=== PATIENT | female | born 1950 | race Caucasian/White ===

== ENCOUNTER 2020-04-27 12:39 | Emergency (ER) | payer MEDICARE, OTHER ==
[~2020-04-27] VITALS: Ht 152.4 cm; Wt 73.9 kg
--- NOTE | 2020-04-27 12:39 | NUR ---
PT BIB FAMILY C/O ABDOMINAL PAIN/NAUSEA AND DIARRHEA X 3 DAYS. PT IS AAOX4, NOT IN RESPIRATORY DISTRESS, V/S STABLE, KEPT RESTED AND COMFORTABLE. WILL CONTINUE TO MONITOR.
--- NOTE | 2020-04-27 12:57 | NUR ---
SEEN AND EXAMINED BY .
[2020-04-27] MEDS ORDERED: ONDANSETRON HCL/PF 4 MG/2 ML VIAL ONE (12:58)
[2020-04-27] MEDS ORDERED: MORPHINE SULFATE INJ 2 MG/ML DISP.SYRIN ONE (12:58)
[2020-04-27] MEDS ORDERED: MORPHINE SULFATE INJ 2 MG/ML DISP.SYRIN IV ONE (13:00)
[2020-04-27] MEDS ORDERED: ONDANSETRON HCL/PF 4 MG/2 ML VIAL IVP ONE (13:00)
--- NOTE | 2020-04-27 13:00 | NUR ---
URINE SPECIMEN COLLECTED AND SENT TO LAB.
--- NOTE | 2020-04-27 13:10 | NUR ---
IV LINE ESTABLISHED BLOOD DRAWN AND SENT TO LAB.
[2020-04-27 13:17] LABS: BASOPHILS # (AUTO) 0.1 /CMM (0.0-0.2); HEMATOCRIT 43 % (33-45); HEMOGLOBIN 14.5 g/dL (11.5-14.8); LYMPHOCYTES # (AUTO) 3.2 /CMM (0.8-4.8); LYMPHOCYTES % (AUTO) 39.4 % (20.0-44.0); MEAN CORPUSCULAR HGB CONC 34 g/dl (31.0-36.0); MEAN CORPUSCULAR VOLUME 89 fL (82-100); MONOCYTES # (AUTO) 0.5 /CMM (0.1-1.30); MONOCYTES % (AUTO) 6.6 % (2.0-12.0); NEUTROPHILS # (AUTO) 4.2 /CMM (1.8-8.9); PLATELET COUNT (AUTO) 299 /CMM (150-450)
[2020-04-27 13:21] LABS: APPEARANCE,URINE SLIGHTLY HAZY (CLEAR); BILIRUBIN,URINE SMALL (NEGATIVE); BLOOD, URINE Negative Ery/uL (NEGATIVE); COLOR,URINE DARK YELLOW (YELLOW); KETONES,URINE Trace (NEGATIVE); LEUKOCYTE ESTERASE ,URINE Negative (NEGATIVE); NITRITE, URINE Negative (NEGATIVE); PH,URINE 5.5 (5.0-8.0); PROTEIN,URINE 30 mg/dl (NEGATIVE); UGLUCOSE Negative (NEGATIVE); UROBILINOGEN,URINE 0.2 EU/dL (0.2)
--- NOTE | 2020-04-27 13:23 | NUR ---
PT IS WHEELED TO CT SCAN VIA [facility].
[2020-04-27 13:24] LABS: CALCIUM, SERUM 9.9 mg/dL (8.5-10.1); POTASSIUM 3.1 mmol/L (3.5-5.1)
[2020-04-27 13:30] LABS: ALBUMIN 4.3 g/dL (3.4-5.0); BILIRUBIN,DIRECT 0.1 mg/dL (0.0-0.2); BILIRUBIN,TOTAL 0.6 mg/dL (0.2-1.0); TOTAL PROTEIN, SERUM 7.8 g/dL (6.4-8.2)
[2020-04-27 13:31] LABS: BACTERIA,URINE Moderate /HPF (None Seen); RBC,URINE 0-2 /HPF (0-2); SQUAMOUS EPITHELIAL CELL,UR Moderate /HPF (None Seen); URINE AMORPHOUS URATE Few /HPF (None Seen)
[2020-04-27 13:32] LABS: MUCUS,URINE Moderate /LPF (None Seen)
--- NOTE | 2020-04-27 14:10 | NUR ---
AT BEDSIDE FOR RE-EVAL.
[2020-04-27] MEDS ORDERED: POTASSIUM CHLORIDE 20 MEQ TAB.PRT.SR PO ONE ×2 (14:30)
[2020-04-27] MEDS ORDERED: IOHEXOL-300 100 ML VIAL IV ONE (16:37)
[2020-04-27] MEDS ORDERED: IV NS 0.9% 250 ML IV ONE (16:37)
--- NOTE | 2020-04-27 17:11 | NUR ---
PT IS BACK FROM THE CT SCAN.
[2020-04-27 18:34] VITALS: BP 119/72
--- NOTE | 2020-04-27 18:34 | NUR ---
IV removed. Catheter intact and site benign. Pressure and 4x4 applied to site. No bleeding noted. Patient discharged to home in stable condition. Written and verbal after care instructions given. Patient verbalizes understanding of instruction.
== END 2020-04-27 18:35 | disposition home or self-care (01) ==
LOC: ER 12:47
DX: K44.9 Diaphragmatic hernia without obstruction or gangrene (principal); E87.6 Hypokalemia; G89.29 Other chronic pain; E78.5 Hyperlipidemia, unspecified; K21.9 Gastro-esophageal reflux disease without esophagitis; I25.10 Atherosclerotic heart disease of native coronary artery without angina pectoris; I10 Essential (primary) hypertension; Z98.890 Other specified postprocedural states
CPT/HCPCS: 36415; 71045; 71260; 74176; 74177; 80048; 80076; 81001; 83690; 84484 ×2; 85025; 87086; 93005 ×2; 96374; 96375; 99285; J2270; J2405; J7050; Q9967; 81000-TC

== ENCOUNTER 2021-02-20 10:56 | Inpatient (IN) | payer MEDICARE, OTHER ==
[~2021-02-20] VITALS: Ht 154.9 cm; Wt 75.8 kg
--- NOTE | 2021-02-20 10:56 | NUR ---
PT BIB DAUGHTER C/O SOB, CHEST PAIN SINCE YESTERDAY. PT IS AAOX4, NOT IN RESPIRATORY DISTRESS, HOOKED TO DAMPENER, KEPT RESTED AND COMFORTABLE. WILL CONTINUE TO MONITOR.
--- NOTE | 2021-02-20 11:27 | NUR ---
AT BEDSIDE FOR EVAL.
[2021-02-20] MEDS ORDERED: ASPIRIN 81 MG TAB.CHEW PO ONE (11:30)
[2021-02-20] MEDS ORDERED: ONDANSETRON HCL/PF 4 MG/2 ML VIAL IV ONE (11:30)
[2021-02-20] MEDS ORDERED: ONDANSETRON HCL/PF 4 MG/2 ML VIAL ONE (11:38)
[2021-02-20] MEDS ORDERED: MORPHINE SULFATE INJ 4 MG/ML DISP.SYRIN ONE (11:38)
[2021-02-20] MEDS ORDERED: ASPIRIN 81 MG TAB.CHEW ONE (11:38)
--- NOTE | 2021-02-20 11:38 | NUR ---
IV LINE ESTABLISHED BLOOD DRAWN AND SENT TO LAB.
[2021-02-20] MEDS ORDERED: ISOS60TA72 PO (11:44)
[2021-02-20] MEDS ORDERED: ATOR40TA PO (11:44)
[2021-02-20] MEDS ORDERED: NITR0.4T48 SL (11:44)
[2021-02-20] MEDS ORDERED: METO50TA16 PO (11:44)
[2021-02-20] MEDS ORDERED: CLON0.2T PO (11:44)
[2021-02-20] MEDS ORDERED: ASPI-1420 PO (11:44)
[2021-02-20] MEDS ORDERED: ZOLP10TA2 PO (11:44)
[2021-02-20] MEDS ORDERED: ACET-2605 PO (11:44)
[2021-02-20] MEDS ORDERED: FLUT16SP16 (11:44)
[2021-02-20] MEDS ORDERED: OMEP1CAP24 PO (11:46)
[2021-02-20 11:47] LABS: BASOPHILS # (AUTO) 0.1 /CMM (0.0-0.2); BASOPHILS % (AUTO) 0.8 % (0.0-2.0); EOSINOPHILS % (AUTO) 0.3 % (0.0-6.0); HEMATOCRIT 41 % (33-45); HEMOGLOBIN 13.9 g/dL (11.5-14.8); LYMPHOCYTES # (AUTO) 2.5 /CMM (0.8-4.8); LYMPHOCYTES % (AUTO) 30.8 % (20.0-44.0); MEAN CORPUSCULAR HGB CONC 34 g/dl (31.0-36.0); MEAN CORPUSCULAR VOLUME 89 fL (82-100); MONOCYTES # (AUTO) 0.5 /CMM (0.1-1.30); MONOCYTES % (AUTO) 5.9 % (2.0-12.0); NEUTROPHILS # (AUTO) 5.1 /CMM (1.8-8.9); NEUTROPHILS % (AUTO) 62.2 % (43.0-81.0); PLATELET COUNT (AUTO) 248 /CMM (150-450); RED BLOOD CELL COUNT(AUTO) 4.55 MIL/uL (4.0-5.2); WHITE BLOOD COUNT (AUTO) 8.2 K/uL (4.3-11.0)
[2021-02-20 11:53] LABS: CALCIUM, SERUM 9.6 mg/dL (8.5-10.1); CREATININE 0.9 mg/dL (0.6-1.3)
[2021-02-20] MEDS ORDERED: MORPHINE SULFATE INJ 2 MG/ML DISP.SYRIN IV ONE (12:00)
--- NOTE | 2021-02-20 12:13 | NUR ---
LAB CALLED PT COVID RESULT NEGATIVE (-)
--- NOTE | 2021-02-20 12:32 | NUR ---
[facility] CALLED SADD[facility]AG[facility].
--- NOTE | 2021-02-20 13:19 | NUR ---
TELE 309.1
--- NOTE | 2021-02-20 13:25 | NUR ---
REPORT GIVEN TO RAJANI LEYVA FOR CLEMENT[place].
[2021-02-20 14:00] VITALS: BP 180/75
[2021-02-20] MEDS ORDERED: HYDROCODONE/APAP 5/325MG TABLET PO PRN (14:30)
[2021-02-20] MEDS ORDERED: ACETAMINOPHEN 325 MG TABLET PO PRN (14:30)
[2021-02-20] MEDS ORDERED: MAG HYDROX/AL HYDROX/SIMETH 30 ML UDC PO PRN (14:30)
[2021-02-20] MEDS ORDERED: Z GUARD REMEDY 2 OZ OINT TP PRN (14:30)
[2021-02-20] MEDS: IV NS 0.9% 1,000 ML IV PRN (14:38)
--- NOTE | 2021-02-20 15:07 | NUR ---
CLAY MACHINE OPERATOR ADMITTING NOTES PT ADMITTED TO UNIT VIA [facility] AT 1400 ACCOMPANIED BY Kathleen RN MARTY JOSH AND PT'S DAUGHTER. PT STOOD-UP FROM [facility] AND WALKED TO BED. PT IS A/O X4. FAROESE SPEAKING UNDERSTANDS MINIMAL MALTESE, DENIES ANY PAIN AT THIS TIME. ON ROOM AIR, BREATHING EVEN AND UNLABORED, NO SOB NOTED. SKIN IS INTACT. IV ACCESS PRESENT ON RIGHT WRIST G#18, IVF OF NS @ 60ML/HR STARTED. EXTERNAL AMMUNITION SPECIALIST APPLIED WITH CURRENT READING OF SB WITH HR ON THE 50'S, NO C/O CHEST PAIN VOICED AT THIS TIME. PT NOTED WITH ELEVATED BP 180/75, DNP MADE AWARE AND WENT TO CHECK PT. ORDERED PT NPO AND TO DO STAT CT OF ABD/PELVIS W/O CONTRAST. SAFETY MEASURES INITIATED: BED PLACED IN LOWEST LOCKED POSITION W/ SR-UP X2. CALL LIGHT PLACED W/IN EASY REACH OF PT. WILL CONTINUE TO MONITOR PT'S STATUS.
[2021-02-20] MEDS: ENOXAPARIN SODIUM 40 MG/0.4 ML DISP.SYRIN SQ SCH (15:16)
[2021-02-20] MEDS ORDERED: hydrALAZINE HCL IV 20 MG VIAL IV PRN (15:30)
[2021-02-20] MEDS: MORPHINE SULFATE INJ 2 MG/ML DISP.SYRIN IV PRN ×2 (15:33→20:09)
--- NOTE | 2021-02-20 15:33 | NUR ---
RN NOTES PATIENT C/O OF HEADACHE WITH PAIN SCALE OF 8/10. DUE PRN PAIN MEDICATION GIVEN, WILL CONTINUE TO MONITOR PAIN STATUS.
--- NOTE | 2021-02-20 17:51 | NUR ---
RN NOTES PATIENT NOTED WITH ELEVATED BP OF 183/81, PRN HYDRALAZINE 10MH/0.5ML IVP ADMINISTERED AT 1751. WILL CONTINUE TO MONITOR.
--- NOTE | 2021-02-20 18:43 | NUR ---
RN NOTES AT 1810 PATIENT NOTED RESTLESS AND ANXIOUS, TELE READING SHOWED SINUS TACHY WITH HR OF 153. VITAL SIGNS CHECKED, BP 190/87, NV 93, RR 24, TEMP 98.5. PLACED ON OXYGEN VIA NC AT 5LPM, SATURATION NOTED AT 100%. MARY GARCÍA NOTIFIED. AT 1840 PATIENT IS MORE CALM AND RELAX. VS FOLLOWS BP 167/85, NV 79, RR 18, TEMP 98.2, O2 LOWERED DOWN TO 2LPM SATURATING AT 98-99%. MARY GARCÍA MADE AWARE AND ACKNOWLEDGED.
--- NOTE | 2021-02-20 18:57 | NUR ---
NATIONAL SECRETARY CLOSING NOTES PT AWAKE AND RESTING IN BED AT THIS TIME WITH DAUGHTER AT BEDSIDE. A/O X4. EQUATORIAL GUINEAN SPEAKING, UNDERSTANDS MINIMAL FILIPINO. ON SUPPLEMENTAL 02 VIA N/C AT 2LPM AT THIS TIME, BREATHING EVEN AND UNLABORED. IV ACCESS ON RIGHT WRIST G#18 INTACT AND PATENT WITH IVF OF NS @ 60ML/HR INFUSING WELL. EXTERNAL RUBBER GRINDER IN PLACE WITH CURRENT READING OF NSR WITH HR OF 95 AT THIS TIME, NO C/O CP VOICED. ALL DUE NURSING CARE DONE. SAFETY MEASURES MAINTAINED: BED IN LOWEST LOCKED POSITION W/ SR-UP X2. CALL LIGHT W/I EASY REACH OF PT. WILL ENDORSE [place] TO BUTCHER HEAD NURSE.
--- NOTE | 2021-02-20 18:59 | NUR ---
MS RN CLOSING NOTES PATIENT IN BED, AWAKE, ALERT AND ORIENTED X 4. ON ROOM AIR, TOLERATING WELL, PATIENT SHOWS NO SIGNS OF SOB OR RESPIRATORY DISTRESS. V/S ARE WNL. NO COMPLAINTS OF PAIN AT THIS TIME. SAFETY OBSERVED AND MAINTAINED: BED LOCKED AND PLACED IN THE LOWEST POSITION, SIDE RAILS UP X 2, CALL LIGHT IS WITHIN REACH. ALL MEDS GIVEN ORDERED. ENDORSED TO RENTAL SALES AGENT NURSE FOR CONTINUITY OF CARE.
--- NOTE | 2021-02-20 19:30 | NUR ---
RN NOTES Received patient awake in bed, a/ox4, Divehi speaking, daughter at bedside, SR on tele monitor HR-74, not on distress, bed in locked position, call light within reach, siderailsupx2, continue to monitor
[2021-02-20 20:00] VITALS: BP 170/75
--- NOTE | 2021-02-20 20:17 | NUR ---
RN NOTES Complained oa abdominal pain- Morphine 2 mg IV given as ordered, V/S stable
[2021-02-20] MEDS ORDERED: NITROGLYCERIN 0.4 MG/TAB BOTTLE SL PRN (20:30)
[2021-02-20] MEDS: CLONIDINE HCL 0.1 MG TABLET PO SCH (20:59)
[2021-02-20] MEDS: METOPROLOL TARTRATE 50 MG TABLET PO SCH (21:00)
[2021-02-20] MEDS: ONDANSETRON HCL/PF 4 MG/2 ML VIAL IVP PRN (23:51)
--- NOTE | 2021-02-20 23:54 | NUR ---
RN NOTES Complained of feeling nauseous- Zofran 4 mg IV given as ordered
[2021-02-21] VITALS (7 sets, daily range): BP systolic 117–184; BP diastolic 62–98
[2021-02-21] MEDS: MORPHINE SULFATE INJ 2 MG/ML DISP.SYRIN IV PRN ×2 (05:28→12:55)
--- NOTE | 2021-02-21 05:31 | NUR ---
RN NOTES Complained of abdominal pain- Morphine 2 mg IV given as ordered, V/S stable
[2021-02-21] MEDS: IV NS 0.9% 1,000 ML IV PRN ×2 (05:38→21:23)
--- NOTE | 2021-02-21 06:30 | NUR ---
RN NOTES Sleeping but arousable. not in distress, denies pain at this time, morning care rendered, call light within reach, jadaupx2, pt. needs attended
[2021-02-21 06:35] LABS: CALCIUM, SERUM 9.3 mg/dL (8.5-10.1); MAGNESIUM 2.1 mg/dL (1.8-2.4); POTASSIUM 3.5 mmol/L (3.5-5.1)
[2021-02-21 06:40] LABS: BASOPHILS % (AUTO) 0.3 % (0.0-2.0); EOSINOPHILS % (AUTO) 0.2 % (0.0-6.0); HEMATOCRIT 45 % (33-45); HEMOGLOBIN 15.3 g/dL (11.5-14.8); LYMPHOCYTES # (AUTO) 2.3 /CMM (0.8-4.8); LYMPHOCYTES % (AUTO) 27.9 % (20.0-44.0); MEAN CORPUSCULAR HGB CONC 34 g/dl (31.0-36.0); MEAN CORPUSCULAR VOLUME 91 fL (82-100); MONOCYTES # (AUTO) 0.5 /CMM (0.1-1.30); MONOCYTES % (AUTO) 6.3 % (2.0-12.0); NEUTROPHILS # (AUTO) 5.4 /CMM (1.8-8.9); NEUTROPHILS % (AUTO) 65.3 % (43.0-81.0); PLATELET COUNT (AUTO) 270 /CMM (150-450); RED BLOOD CELL COUNT(AUTO) 4.95 MIL/uL (4.0-5.2); WHITE BLOOD COUNT (AUTO) 8.3 K/uL (4.3-11.0)
[2021-02-21] MEDS: CLONIDINE HCL 0.1 MG TABLET PO SCH ×3 (06:59→16:16)
--- NOTE | 2021-02-21 07:00 | NUR ---
RN NOTES Patient blood pressure 161/92- clonidine 0.1mg po was given early, instead of 0900am
--- NOTE | 2021-02-21 07:11 | NUR ---
RN OPENING NOTES Sleeping but arousable. not in distress, denies pain and shortness of breath at this time, call light within reach na danswered promptly , side rails up x2, pt. needs attended to by staff.
[2021-02-21] MEDS: FLUTICASONE PROPIONATE 16 GM BOTTLE NS SCH ×2 (08:02→16:16)
[2021-02-21] MEDS: ISOSORBIDE MONONITRATE (30MG) 30 MG TAB.SR.24H PO SCH (08:03)
[2021-02-21] MEDS: METOPROLOL TARTRATE 50 MG TABLET PO SCH ×2 (08:03→16:17)
[2021-02-21] MEDS ORDERED: ATORVASTATIN 40 MG TABLET PO SCH ×2 (09:00)
[2021-02-21] MEDS: ATORVASTATIN 40 MG TABLET PO SCH (09:00)
[2021-02-21] MEDS ORDERED: NITROGLYCERIN 4.9 GM SPRAY SL ONE (11:00)
[2021-02-21] MEDS ORDERED: METOPROLOL TARTRATE INJ 5 MG/5 ML AMPUL IVP ONE (11:00)
[2021-02-21] MEDS ORDERED: IOHEXOL-350 100 ML VIAL IV ONE (11:59)
[2021-02-21] MEDS ORDERED: IV NS 0.9% 250 ML IV ONE (11:59)
[2021-02-21] MEDS ORDERED: NITROGLYCERIN 4.9 GM SPRAY ONE (12:16)
--- NOTE | 2021-02-21 12:17 | NUR ---
RN CTCA PT SENT TO CT BY W/C. 18GA IV SITE IN R AC STARTED ON THE FLOOR. PT HR IN ACCEPTABLE RANGE FOR SCAN. NO IV METOPROLOL GIVEN. NTG SPRAY GIVEN. TOLERATED PROCEDURE WELL. SENT BACK TO FLOOR BY W/C.
[2021-02-21] MEDS: ENOXAPARIN SODIUM 40 MG/0.4 ML DISP.SYRIN SQ SCH (13:33)
--- NOTE | 2021-02-21 16:17 | NUR ---
RN NOTE METOPROLOL HELD, HR 61
--- NOTE | 2021-02-21 19:00 | NUR ---
RN OPENING NOTE RECEIVED PT AWAKE AT BEDSIDE, A/OX4, NEPALI SPEAKING. PT VERBALIZES NEEDS. PT ON RA. NO SOB NOTED, NO S/S OF RESPIRATORY DISTRESS. PT IS AMBULATORY WITH BRP. PT HAS NO COMPLAIN OF PAIN AT THIS TIME. IV ACCESS IN RAC #18, INFUSING NS @ 60ML/HR. IV IS INTACT, PATENT,AND FLUSHING WELL. SAFETY MEASURED MAINTAINED . BED IN LOWEST LOCKED POSITION, HOB ELEVATED, SIDE RAILS UP. CALL LIGHT AND TABLE WITHIN REACH . WILL CONTINUE WITH PLAN OF CARE
--- NOTE | 2021-02-21 20:49 | NUR ---
RN NOTES GOT AN ORDER FROM DR. ETIENNE OF LIPITOR 40MG PO X1, BECAUSE PT'S TOOK 4O MG PO IN THE MORNING, ORDER NOTED AND CARRIED OUT
--- NOTE | 2021-02-21 21:40 | NUR ---
RN NOTES NEW IV LINE INSERTED ON THE LEFT WRIST BY ER NURSE-GAUGE 22
[2021-02-21] MEDS ORDERED: ATORVASTATIN 40 MG TABLET PO ONE (22:00)
[2021-02-22] MEDS: MORPHINE SULFATE INJ 2 MG/ML DISP.SYRIN IV PRN ×2 (00:54→05:43)
--- NOTE | 2021-02-22 01:02 | NUR ---
PT C/O OF ACHING PAIN OF 04/20 , PER PT REQUEST PRN MORPHINE INJ 2MG/1ML PO Q4HR GIVEN AT THIS TIME Addendum: 02/22/21 at 0215 by ROSA WELDNO RN PT C/O OF ACHING PAIN OF 04/20 , PER PT REQUEST PRN MORPHINE INJ 2MG/1ML IV Q4HR GIVEN AT THIS TIME
[2021-02-22] MEDS: ONDANSETRON HCL/PF 4 MG/2 ML VIAL IVP PRN (03:04)
--- NOTE | 2021-02-22 03:06 | NUR ---
RN NOTES COMPLAINED OF FEELING NAUSEOUS-ZOFRAN 4 MG IV GIVEN ORDERED
--- NOTE | 2021-02-22 05:47 | NUR ---
RN NOTES Complainedof abdominal pain-Morphine 2 mg IV given as ordered, V/S Stable
[2021-02-22 05:55] LABS: BASOPHILS % (AUTO) 0.5 % (0.0-2.0); EOSINOPHILS % (AUTO) 0.3 % (0.0-6.0); HEMATOCRIT 42 % (33-45); HEMOGLOBIN 14.2 g/dL (11.5-14.8); LYMPHOCYTES # (AUTO) 2.5 /CMM (0.8-4.8); LYMPHOCYTES % (AUTO) 29.4 % (20.0-44.0); MEAN CORPUSCULAR HGB CONC 34 g/dl (31.0-36.0); MEAN CORPUSCULAR VOLUME 92 fL (82-100); MONOCYTES # (AUTO) 0.5 /CMM (0.1-1.30); MONOCYTES % (AUTO) 6.4 % (2.0-12.0); NEUTROPHILS # (AUTO) 5.4 /CMM (1.8-8.9); NEUTROPHILS % (AUTO) 63.4 % (43.0-81.0); PLATELET COUNT (AUTO) 236 /CMM (150-450); RED BLOOD CELL COUNT(AUTO) 4.55 MIL/uL (4.0-5.2); WHITE BLOOD COUNT (AUTO) 8.6 K/uL (4.3-11.0)
--- NOTE | 2021-02-22 06:00 | NUR ---
RN CLOSING NOTE PT RESTING IN BED COMFORTABLY AT THIS TIME, EASY TO AROUSE. PT REMAINED STABLE THROUGHOUT SHIFT. ALL NEEDS, MEDICATIONS AND CARE ADMINISTERED ANTICIPATED. SAFETY PRECAUTIONS IN PLACE AND MAINTAINED AT ALL TIMES, BED IN LOWEST LOCKED POSITION, HOB ELEVATED, SIDE RAILS UP X2. CALL LIGHT AND TABLE WITHIN REACH. WILL ENDORSE TO MORNING SHIFT MET
[2021-02-22 06:31] LABS: CALCIUM, SERUM 9.1 mg/dL (8.5-10.1); CREATININE 0.8 mg/dL (0.6-1.3); MAGNESIUM 2.2 mg/dL (1.8-2.4); PHOSPHORUS 3.8 mg/dL (2.5-4.9); POTASSIUM 3.2 mmol/L (3.5-5.1)
--- NOTE | 2021-02-22 07:32 | NUR ---
RN OPENING NOTE PT RESTING IN BED COMFORTABLY AT THIS TIME, EASY TO AROUSE. IV LINES INTACT AND PATENT AND FLUSHING SAFETY PRECAUTIONS IN PLACE AND MAINTAINED AT ALL TIMES, BED IN LOWEST LOCKED POSITION, HOB ELEVATED, SIDE RAILS UP X2. CALL LIGHT AND TABLE WITHIN REACH AND WILL ANSWER PROPMTLY.
[2021-02-22 08:00] VITALS: BP 202/85
[2021-02-22] MEDS: FLUTICASONE PROPIONATE 16 GM BOTTLE NS SCH (08:14)
[2021-02-22] MEDS: ISOSORBIDE MONONITRATE (30MG) 30 MG TAB.SR.24H PO SCH (08:17)
[2021-02-22] MEDS: CLONIDINE HCL 0.1 MG TABLET PO SCH (08:17)
[2021-02-22 08:18] VITALS: BP 214/99
[2021-02-22] MEDS: METOPROLOL TARTRATE 50 MG TABLET PO SCH (08:18)
[2021-02-22] MEDS: ATORVASTATIN 40 MG TABLET PO SCH (08:23)
--- NOTE | 2021-02-22 08:24 | NUR ---
02/21 0900 Lipitor non admin , previous order of 40mg was given shortly before new lipitor order of 2 40mg tablets was inputted
[2021-02-22] MEDS: POTASSIUM CHLORIDE 20 MEQ TAB.PRT.SR PO SCH ×2 (10:51→11:30)
[2021-02-22] MEDS ORDERED: POLYETHYLENE GLYCOL 3350 17 GM POWD.PACK PO ONE (11:00)
[2021-02-22] MEDS ORDERED: ATOR40TA PO (11:27)
[2021-02-22] MEDS ORDERED: HYDR-4303 PO (11:27)
--- NOTE | 2021-02-22 13:52 | NUR ---
PT LEFT FACILITY AT 1345 WITH [facility] TO ACCOMPANY HER HOME WITH PRIVATE CAR. ALL BELONGINGS ACCOUNTED FOR AND FORMS SIGNED. IV LINE SAFELY REMOVED AND BANDAGED , PT AND FAMILY EDUCATED ON NEW MEDICATIONS AND HOW TO PROGRESS DIET TOLERATED, PT ACCOMPANIED DOWNSTAIRS BY NURSE
== END 2021-02-22 13:45 | disposition home or self-care (01) | DRG 392 ==
LOC: ER 11:07 → TELE 13:40 → MED 02-21 14:59
PROVIDERS: ADMIT Nurse Practitioner Acute Care; ATTEND Nurse Practitioner Acute Care
DX: K57.30 Diverticulosis of large intestine without perforation or abscess without bleeding (principal); I50.32 Chronic diastolic (congestive) heart failure; I16.9 Hypertensive crisis, unspecified; I11.0 Hypertensive heart disease with heart failure; E78.5 Hyperlipidemia, unspecified; R07.9 Chest pain, unspecified; E66.9 Obesity, unspecified; Z68.31 Body mass index [BMI] 31.0-31.9, adult; K21.9 Gastro-esophageal reflux disease without esophagitis; Z20.822 Contact with and (suspected) exposure to COVID-19
CPT/HCPCS: 36415; 71045-TC; 75574; 80048-TC; 80061-TC; 83605-TC; 83690-TC; 83735-TC; 84100-TC; 84484-TC; 85025-TC; 87081-TC; 93307-TC; 97112-TC; 97116-TC; 97530-TC; C9803; G0378; J0360; J1650; J2270; J2405; J7030; J7050; Q9967

== ENCOUNTER 2021-04-23 13:23 | Inpatient (IN) | payer MEDICARE, OTHER ==
[~2021-04-23] VITALS: Ht 152.4 cm; Wt 76.2 kg
[~2021-04-23 13:23] MED LIST: ACET-2605 PO; ASPI-1420 PO; ATOR40TA PO; CLON0.2T PO; FLUT16SP16; HYDR-4303 PO; ISOS60TA72 PO; METO50TA16 PO; NITR0.4T48 SL; OMEP1CAP24 PO; ZOLP10TA2 PO
[2021-04-23 13:55] LABS: BASOPHILS # (AUTO) 0.1 K/uL (0.0-0.2); BASOPHILS % (AUTO) 0.6 % (0.0-2.0); EOSINOPHILS % (AUTO) 0.6 % (0.0-6.0); HEMATOCRIT 42 % (33-45); LYMPHOCYTES # (AUTO) 4.3 K/uL (0.8-4.8); LYMPHOCYTES % (AUTO) 43.7 % (20.0-44.0); MEAN CORPUSCULAR HGB CONC 34 g/dl (31.0-36.0); MEAN CORPUSCULAR VOLUME 91 fL (82-100); MONOCYTES # (AUTO) 0.6 K/uL (0.1-1.30); MONOCYTES % (AUTO) 6.5 % (2.0-12.0); NEUTROPHILS # (AUTO) 4.8 K/uL (1.8-8.9); NEUTROPHILS % (AUTO) 48.6 % (43.0-81.0); PLATELET COUNT (AUTO) 249 K/uL (150-450); RED BLOOD CELL COUNT(AUTO) 4.59 MIL/uL (4.0-5.2); WHITE BLOOD COUNT (AUTO) 9.9 K/uL (4.3-11.0)
--- NOTE | 2021-04-23 14:05 | NUR ---
SANDI (GRAND DAUGHTER) [phone]
--- NOTE | 2021-04-23 14:06 | NUR ---
SPOKE WITH GRAND DAUGHTER SANDI, ACCORDING TO HER PT HAS LOW BP. SHE WENT TO THE KITCHEN TO MAKE COFFEE AND PT'S WAS THEN FOUND BY THE FIDELTER ON THE KITCHEN FLOOR. FAMILY REPORTS THAT SHE HIT HER HEAD. PT IS NOT ON BLOOD THINNER.
[2021-04-23 14:07] LABS: CREATININE 1.1 mg/dL (0.6-1.3); POTASSIUM 3.7 mmol/L (3.5-5.1)
--- NOTE | 2021-04-23 14:19 | NUR ---
KEVIN FROM HOME TO ER BED 6. AAOX4. NOT IN RESP DITRESS. BROUGHT IN F OR A SYNCOPAL EPISODE. PER PT, SHE WAS GOING TO THE KITCHEN TO MAKE COFFEE AND DOES NOT REMEMBER WHAT HAPPENED AFTER. PT WAS FOUND ON THE FLOOR BY HER DAUGTHER. PT REPORT PAIN AT HE BACK OF HER HEAD. NO BLOOD THINNER USE. MD WAS AT THE BEDSIDE FOR EVAL. ORDERS RECEIVED, NOTED AND CARRIED OUT. IV LINE ESTABLISHED ON THE LFA 20G, BLOOD DRAWN AND GIVEN TO PHLEB. URINE WAS ALSO COLLECTED AND SENT TO LAB
[2021-04-23 14:20] LABS: ALBUMIN 3.6 g/dL (3.4-5.0); BILIRUBIN,DIRECT 0.1 mg/dL (0.0-0.2); BILIRUBIN,TOTAL 0.4 mg/dL (0.2-1.0); CALCIUM, SERUM 9.2 mg/dL (8.5-10.1); TOTAL PROTEIN, SERUM 6.9 g/dL (6.4-8.2)
[2021-04-23 14:30] LABS: BILIRUBIN,URINE SMALL (NEGATIVE); COLOR,URINE YELLOW (YELLOW); LEUKOCYTE ESTERASE ,URINE Small (NEGATIVE); NITRITE, URINE Negative (NEGATIVE); PROTEIN,URINE 100 mg/dl (NEGATIVE); UGLUCOSE Negative (NEGATIVE); UROBILINOGEN,URINE 0.2 EU/dL (0.2)
[2021-04-23] MEDS ORDERED: ONDANSETRON HCL/PF 4 MG/2 ML VIAL IVP ONE (14:30)
[2021-04-23] MEDS ORDERED: MORPHINE SULFATE INJ 2 MG/ML DISP.SYRIN IV ONE (14:30)
[2021-04-23 14:50] LABS: BACTERIA,URINE 1+ /HPF (None Seen)
[2021-04-23 14:51] LABS: MUCUS,URINE Few /LPF (None Seen); URINE AMORPHOUS URATE Few /HPF (None Seen)
[2021-04-23] MEDS ORDERED: MORPHINE SULFATE INJ 4 MG/ML DISP.SYRIN ONE (15:16)
[2021-04-23] MEDS ORDERED: ONDANSETRON HCL/PF 4 MG/2 ML VIAL ONE (15:16)
--- NOTE | 2021-04-23 15:27 | NUR ---
PT'S MORPHINE ON HOLD D/T PT'S BP IS 97/55. MD WAS MADE AWARE.
[2021-04-23] MEDS ORDERED: ATOR40TA PO (15:28)
[2021-04-23] MEDS ORDERED: CEFTRIAXONE 1GM BAG (ER ONLY) 1 GM/50 ML PIGGYBACK IV ONE (15:30)
[2021-04-23] MEDS ORDERED: CEFTRIAXONE 1GM BAG (ER ONLY) 50 ML IV ONE (15:36)
--- NOTE | 2021-04-23 16:52 | NUR ---
PT IN BED RESTING WITH HER EYE CLOSED. NAD NOTED
[2021-04-23] MEDS ORDERED: MAGNESIUM HYDROXIDE 30 ML UDC PO PRN (18:30)
--- NOTE | 2021-04-23 20:22 | NUR ---
recieved bed 313-2
--- NOTE | 2021-04-23 20:28 | NUR ---
REPORT GIVEN TO RAJANI MUNOZ FOR CLEMENT[place]
--- NOTE | 2021-04-23 20:49 | NUR ---
PT TRANSPORTED TO UNIT ON [facility] WITH EMT AND RN AT BEDSIDE WITH ACLS PROTOCOL. NAD NOTED DURING TRANSPORT.
[2021-04-23 20:50] VITALS: BP 130/69
[2021-04-23 21:00] VITALS: BP 130/49
--- NOTE | 2021-04-23 21:00 | NUR ---
ADMITTED PATIENT FROM ED DUE TO FALL, DIZZINESS. DX SYNCOPE AND ADMITTED TO TELE, ALERT/ORIENTED X4, ROOM AIR, INDONESIAN SPEAKING ONLY. COMPLAINING OF HEADACHE, GENERALIZED WEAKNESS, ASSISTED TO BSC TO VOID, SKIN INTACT, PER TELEMETRY, SR BRADYCARDIA, HR 49. SKIN ASSESSMENT NEGATIVE, NO EDEMA, GIVEN ROCEPHIN IN ED, FALL PRECAUTION, EDUCATED ON PLAN OF CARE, WILL CONTINUE TO MONITOR.
[2021-04-23] MEDS: FLUTICASONE PROPIONATE 16 GM BOTTLE NS SCH (21:36)
[2021-04-23] MEDS: ACETAMINOPHEN 325 MG TABLET PO PRN (21:37)
[2021-04-23] MEDS: ATORVASTATIN 40 MG TABLET PO SCH (21:37)
[2021-04-23] MEDS: ENOXAPARIN SODIUM 40 MG/0.4 ML DISP.SYRIN SQ SCH (21:37)
[2021-04-23] MEDS: IV NS 0.9% 1,000 ML IV PRN (21:43)
[2021-04-24] VITALS: BP 126/57
[2021-04-24] MEDS: ACETAMINOPHEN 325 MG TABLET PO PRN ×2 (03:08→08:14)
[2021-04-24 04:00] VITALS: BP 128/52
--- NOTE | 2021-04-24 06:32 | NUR ---
ADMITTED FROM ED DUE TO SYNCOPE. ALERT/ORIENTED X4, ROOM AIR, PER TELE, SINUS BRADYCARDIA HR 53, COMPLAINING OF HEADACHE, GIVEN TYLENOL X2 AND ICE PACK WITH SOME RELIEF, S/P FALL AT HOME, PER CT OF HEAD, NO HEMORRHAGE. PER UA, UTI, GIVEN ROCEPHIN IN ED. GENERALIZED WEAKNESS, ASSISTED TO BSC, PER PLAN OF CARE, HOLD METOPROLOL, AND OTHER BP MEDS,, GENTLE HYDRATION NS AT 75ML/HR, CARDIO CONSULT, PT EVAL.
[2021-04-24 06:49] LABS: BASOPHILS # (AUTO) 0.1 K/uL (0.0-0.2); BASOPHILS % (AUTO) 0.9 % (0.0-2.0); EOSINOPHILS % (AUTO) 0.9 % (0.0-6.0); HEMATOCRIT 39 % (33-45); HEMOGLOBIN 13.2 g/dL (11.5-14.8); LYMPHOCYTES # (AUTO) 3.4 K/uL (0.8-4.8); LYMPHOCYTES % (AUTO) 44.1 % (20.0-44.0); MEAN CORPUSCULAR HGB CONC 34 g/dl (31.0-36.0); MEAN CORPUSCULAR VOLUME 90 fL (82-100); MONOCYTES # (AUTO) 0.5 K/uL (0.1-1.30); MONOCYTES % (AUTO) 6.2 % (2.0-12.0); NEUTROPHILS # (AUTO) 3.7 K/uL (1.8-8.9); NEUTROPHILS % (AUTO) 47.9 % (43.0-81.0); PLATELET COUNT (AUTO) 214 K/uL (150-450); RED BLOOD CELL COUNT(AUTO) 4.32 MIL/uL (4.0-5.2); WHITE BLOOD COUNT (AUTO) 7.7 K/uL (4.3-11.0)
[2021-04-24 07:29] LABS: CALCIUM, SERUM 8.9 mg/dL (8.5-10.1); CREATININE 1.1 mg/dL (0.6-1.3); MAGNESIUM 2.3 mg/dL (1.8-2.4); PHOSPHORUS 3.6 mg/dL (2.5-4.9); POTASSIUM 3.6 mmol/L (3.5-5.1)
--- NOTE | 2021-04-24 07:30 | NUR ---
SECURITIES SETTLEMENT PROCESSOR NOTES PT IN BED, RESTING, AWAKE, ALERT AND ORIENTED, DENIES PAIN OR ANY DISCOMFORT, RESPIRATIONS NORMAL, CALL LIGHT WITHIN REACH, IV FLUIDS INFUSING WELL, SEEN BY DR. ELLINGTON, NEEDS ATTENDED.
[2021-04-24] MEDS: PANTOPRAZOLE 40 MG TABLET.DR PO SCH ×2 (08:14→16:09)
[2021-04-24] MEDS: FLUTICASONE PROPIONATE 16 GM BOTTLE NS SCH ×2 (08:14→16:08)
[2021-04-24] MEDS ORDERED: ASPIRIN EC 81 MG TABLET.DR PO SCH (09:00)
[2021-04-24] MEDS: HYDROCODONE/APAP 5/325MG TABLET PO PRN ×2 (10:45→20:41)
--- NOTE | 2021-04-24 10:47 | NUR ---
DIRECTOR SALES SUPPORT NOTES NOTED WITH ELEVATED BP 179/75 HR 67, AND COMPLAINT OF HEADACHE AND ABD PAIN, DR. GARCÍA INFORMED, ORDERS GIVEN, NOTED AND CARRIED OUT.
[2021-04-24] MEDS ORDERED: ISOSORBIDE MONONITRATE (30MG) 30 MG TAB.SR.24H PO SCH (11:00)
[2021-04-24 12:00] VITALS: BP 174/74
[2021-04-24] MEDS: hydrALAZINE HCL 25 MG TABLET PO SCH ×2 (13:00→20:30)
--- NOTE | 2021-04-24 13:23 | NUR ---
CLINICAL CYTOGENETICIST NOTES PT SEEN AND EXAMINED BY DR. GARCÍA, PLAN OF CARE DISCUSSED WITH PT, VERBALIZED UNDERSTANDING.
[2021-04-24 16:00] VITALS: BP 126/71
[2021-04-24] MEDS ORDERED: CEFTRIAXONE 1 G in IV D5W 50 ML IV SCH (16:00)
[2021-04-24] MEDS: IV NS 0.9% 1,000 ML IV PRN (16:08)
--- NOTE | 2021-04-24 18:42 | NUR ---
SAILING INSTRUCTOR NOTES PT IN BED, RESTING, NO COMPLAINT OF PAIN OR ANY DISCOMFORT, RESPIRATIONS NORMAL, NOT IN DISTRESS, PM MEDS GIVEN ORDERED, ASSISTED TO BEDSIDE COMMODE NEEDED, VISITED BY FAMILY, ASSISTED WITH DINNER, ALL NEEDS ATTENDED.
--- NOTE | 2021-04-24 19:57 | NUR ---
theoretical physics teacher Opening Notes Patient was last seen awake in bed resting. Patient's alert and oriented x4. Patient's on room air with no respiratory distress noted. Patient's connected to a tele monitor with no cardiac distress noted. Patient has an IV access on her left forearm which is intact, patent, and flushing well. Patient's in no acute distress at this time. Safety measures in place: Bed locked, bed alarm on, side rails up x3, and call light within reach. Will continue to monitor the patient.
[2021-04-24 20:00] VITALS: BP 187/77
[2021-04-24] MEDS: ATORVASTATIN 40 MG TABLET PO SCH (21:22)
[2021-04-24] MEDS: ENOXAPARIN SODIUM 40 MG/0.4 ML DISP.SYRIN SQ SCH (21:47)
[2021-04-24] MEDS: ONDANSETRON HCL/PF 4 MG/2 ML VIAL IVP PRN (22:42)
[2021-04-24] MEDS ORDERED: CLONIDINE HCL 0.1 MG TABLET PO PRN (23:00)
[2021-04-24] MEDS ORDERED: METOPROLOL TARTRATE 50 MG TABLET PO ONE (23:00)
[2021-04-25] VITALS: BP 183/92
[2021-04-25] MEDS ORDERED: AMLODIPINE BESYLATE 5 MG TABLET PO SCH (01:00)
[2021-04-25] MEDS: HYDROCODONE/APAP 5/325MG TABLET PO PRN ×2 (01:00→06:01)
[2021-04-25] MEDS ORDERED: ZOLPIDEM TARTRATE 5 MG TABLET PO PRN (01:30)
[2021-04-25] MEDS: hydrALAZINE HCL 50 MG TABLET PO SCH ×2 (02:17→04:47)
[2021-04-25 04:00] VITALS: BP 155/61
[2021-04-25 04:47] VITALS: BP 155/61
[2021-04-25] MEDS: ONDANSETRON HCL/PF 4 MG/2 ML VIAL IVP PRN (05:56)
--- NOTE | 2021-04-25 06:02 | NUR ---
alcohol and drug counselor Notes Patient was given 1 tablet of [place] at 0601 for 03/20 pain
--- NOTE | 2021-04-25 07:20 | NUR ---
store person Closing Notes Patient was last seen awake in bed resting. Patient's alert and oriented x4. Patient's on room air with no respiratory distress noted. Patient's connected to a tele monitor with no cardiac distress noted. Patient has an IV access on her left forearm which is intact, patent, and flushing well. Patient's in no acute distress at this time. Safety measures in place: Bed locked, bed alarm on, side rails up x3, and call light within reach. Will endorse care to the day shift nurse.
[2021-04-25 07:27] LABS: BASOPHILS % (AUTO) 0.3 % (0.0-2.0); EOSINOPHILS % (AUTO) 0.2 % (0.0-6.0); HEMATOCRIT 43 % (33-45); HEMOGLOBIN 14.7 g/dL (11.5-14.8); LYMPHOCYTES # (AUTO) 2.3 K/uL (0.8-4.8); LYMPHOCYTES % (AUTO) 24.9 % (20.0-44.0); MEAN CORPUSCULAR HGB CONC 34 g/dl (31.0-36.0); MEAN CORPUSCULAR VOLUME 90 fL (82-100); MONOCYTES # (AUTO) 0.4 K/uL (0.1-1.30); MONOCYTES % (AUTO) 4.8 % (2.0-12.0); NEUTROPHILS # (AUTO) 6.4 K/uL (1.8-8.9); NEUTROPHILS % (AUTO) 69.8 % (43.0-81.0); PLATELET COUNT (AUTO) 255 K/uL (150-450); RED BLOOD CELL COUNT(AUTO) 4.78 MIL/uL (4.0-5.2); WHITE BLOOD COUNT (AUTO) 9.2 K/uL (4.3-11.0)
[2021-04-25 07:28] LABS: CALCIUM, SERUM 9.1 mg/dL (8.5-10.1); CREATININE 0.8 mg/dL (0.6-1.3); MAGNESIUM 2.2 mg/dL (1.8-2.4); POTASSIUM 3.2 mmol/L (3.5-5.1)
--- NOTE | 2021-04-25 07:35 | NUR ---
SOFTWARE RELEASE MANAGER OPENING NOTES RECEIVED PATIENT IN BED AWAKE. ALERT AND ORIENTED X4. NO SIGNS OR SYMPTOMS OF DISTRESS NOTED. NO SOB. BREATHING IS EVEN AND UNLABORED. IV ACCESS LATA MIDLINE PATENT AND INTACT. CONNECTED TO EXTERNAL TELE MONITOR WITH SINUS RHYTHM READING. SAFETY MEASURES IN PLACE WITH BED LOCKED AT LOW POSITION AND SIDE RAILS UP X 2. WILL CONTINUE TO MONITOR PATIENT THROUGHOUT SHIFT. Addendum: 04/25/21 at 0740 by MARINA BAUTISTA RN ABOVE NOTE ERROR SOFTWARE RELEASE MANAGER OPENING NOTES RECEIVED PATIENT IN BED AWAKE. ALERT AND ORIENTED X4, ICELANDIC SPEAKING. NO SIGNS OR SYMPTOMS OF DISTRESS NOTED. NO SOB. BREATHING IS EVEN AND UNLABORED. IV ACCESS LFA#20 PATENT AND INTACT RUNNING NS 0.9% @75MLS/HR. CONNECTED TO EXTERNAL TELE MONITOR WITH SINUS RHYTHM READING. SAFETY MEASURES IN PLACE WITH BED LOCKED AT LOW POSITION AND SIDE RAILS UP X 2. WILL CONTINUE TO MONITOR PATIENT THROUGHOUT SHIFT.
--- NOTE | 2021-04-25 08:50 | NUR ---
COMMODITIES BROKER AMA NOTES PATIENT LEFT AMA. BENEFITS AND RISKS WERE EXPLAINED. PATIENT VERBALIZED UNDERSTANDING AND SIGNED AMA FORM. CHARGE NURSE, STAR AND DR. GARCÍA MADE AWARE.
[2021-04-25] MEDS ORDERED: HYDR-4077 PO (08:57)
[2021-04-25] MEDS ORDERED: AMLO-212 PO (08:57)
[2021-04-25] MEDS ORDERED: METOPROLOL TARTRATE 50 MG TABLET PO SCH (09:00)
[2021-04-25] MEDS ORDERED: ISOSORBIDE MONONITRATE (30MG) 30 MG TAB.SR.24H PO SCH (10:24)
== END 2021-04-25 08:50 | disposition left against medical advice (07) | DRG 312 ==
LOC: ER 13:34 → TRANSITION 16:50 → TELE 20:29
PROVIDERS: ADMIT Nurse Practitioner Acute Care; ATTEND Nurse Practitioner Acute Care
DX: I95.1 Orthostatic hypotension (principal); N39.0 Urinary tract infection, site not specified; J90 Pleural effusion, not elsewhere classified; I50.32 Chronic diastolic (congestive) heart failure; Z20.822 Contact with and (suspected) exposure to COVID-19; I11.0 Hypertensive heart disease with heart failure; E78.5 Hyperlipidemia, unspecified; K21.9 Gastro-esophageal reflux disease without esophagitis; I67.2 Cerebral atherosclerosis; I70.0 Atherosclerosis of aorta; Z98.890 Other specified postprocedural states; Z90.710 Acquired absence of both cervix and uterus; Z79.82 Long term (current) use of aspirin; Z79.899 Other long term (current) drug therapy; K57.30 Diverticulosis of large intestine without perforation or abscess without bleeding; K44.9 Diaphragmatic hernia without obstruction or gangrene; Z86.73 Personal history of transient ischemic attack (TIA), and cerebral infarction without residual deficits; Z91.81 History of falling
CPT/HCPCS: 36415; 70450-TC; 71045-TC; 80048-TC; 80061-TC; 80076-TC; 81001; 82962-TC; 83735-TC; 83880; 84100-TC; 84484-TC; 85025-TC; 85730-TC; 87081-TC; 87086-TC; 97116-TC; 97530-TC; C9803; G0378; J0696; J1650; J2270; J2405; J7030; J7060